=== PATIENT | female | born 2005 | race Hispanic/Latino ===

== ENCOUNTER 2023-10-06 17:20 | Emergency (ER) | payer MEDICAID ==
[~2023-10-06] VITALS: Ht 152.4 cm; Wt 48.1 kg
[2023-10-06 18:02] LABS: SARS-CoV-2, RNA, NAAT NEGATIVE SARS CoV-2 (NEGATIVE)
[2023-10-06 18:04] LABS: RAPID GROUP A STREP negative (NEGATIVE)
[2023-10-06 18:14] LABS: INFLUENZA TYPE B Negative For Type B (NEGATIVE)
[2023-10-06 18:16] LABS: INFLUENZA TYPE A Positive For Type A (NEGATIVE)
[2023-10-06] MEDS ORDERED: OSEL75 PO (18:22)
[2023-10-06 18:28] VITALS: BP 114/65; PULSE 104; RESP 14; O2SAT 100
== END 2023-10-06 18:37 | disposition home or self-care (01) ==
LOC: EDSEX 17:20 → EDH 17:20
DX: O26.899 Other specified pregnancy related conditions, unspecified trimester (principal); J10.1 Influenza due to other identified influenza virus with other respiratory manifestations; R05.9 Cough, unspecified; R50.9 Fever, unspecified; Z3A.00 Weeks of gestation of pregnancy not specified; Z88.0 Allergy status to penicillin; Z90.89 Acquired absence of other organs; Z20.822 Contact with and (suspected) exposure to COVID-19
CPT/HCPCS: 99283; 87635; 87880; 87804 ×2; C9803